=== PATIENT | female | born 1970 | race Caucasian/White ===

== ENCOUNTER 2019-04-17 22:49 | Emergency (ER) | payer OTHER ==
[~2019-04-17] VITALS: Ht 167.6 cm; Wt 111.0 kg
[2019-04-18 01:50] VITALS: BP 146/84
== END 2019-04-18 02:29 | disposition home or self-care (01) ==
LOC: ED 04-18 00:09
DX: A09 Infectious gastroenteritis and colitis, unspecified (principal)
CPT/HCPCS: 36415; 74177; 80053; 81001; 83605; 84145; 84703; 85025; 87040; 96374; 96375; 99284; J2270; J2405; J7030; Q9967